=== PATIENT | male | born 1980 | race Caucasian/White ===

== ENCOUNTER → 2023-02-04 | Outpatient (CLI) | payer OTHER ==
[2023-02-04 09:54] LABS: Appearance,Urine Clear (Clear); Bilirubin,Urine Negative (Negative); Blood,Urine Negative (Negative); Color,Urine Yellow; Glucose,Urine (UA) Negative (Negative); Ketones,Urine Negative (Negative); Leukocyte Esterase,Urine Negative (Negative); Nitrite,Urine Negative (Negative); PH, Urine 5.5 (5.0-8.0); Protein,Urine Negative (Negative); Specific Gravity,Urine 1.024 (1.001-1.035); Urobilinogen,Urine <2.0 mg/dL (<2.0)
[2023-02-04 13:23] LABS: Basophils # (A) 0.02 X 10*3/uL (0.00-0.10); Basophils % (A) 0.4 %; Eosinophils # (A) 0.23 X 10*3/uL (0.04-0.35); HCT 44.8 % (39.6-50.0); HGB 14.7 d/dL (13.0-17.0); Lymphocytes # (A) 2.33 X 10*3/uL (0.90-5.00); Lymphocytes % (A) 40.9 %; MCH 28.7 pg (27.0-32.0); MCHC 32.8 d/dL (32.0-37.0); MCV 87.3 FL (80.0-97.0); Mean Platelet Volume 10.9 FL (9.5-12.2); Monocytes # (A) 0.42 X 10*3/uL (0.20-1.00); Monocytes % (A) 7.4 %; NRBC Per 100 WBC 0 X 10*3/uL (0.00-0.01); Neutrophils # (A) 2.69 X 10*3/uL (1.80-7.70); Neutrophils % (A) 47.1 %; Platelet Count 247 X 10*3/uL (140-440); RBC 5.13 X 10*6/uL (4.40-5.60); RDW 11.8 % (11.5-14.5)
[2023-02-04 13:34] LABS: Chol/HDL Ratio 2.21 Ratio; LDL Cholesterol,Calculated 70.3 mg/dL (0.0-131.0); VLDL Calculation 8.04 mg/dL (5.00-40.00)
[2023-02-04 14:21] LABS: ALT 17 U/L (10-49); AST 21 U/L (14-35); Albumin 4.6 d/dL (3.8-4.9); Alkaline Phosphatase 232 U/L (41-126); Blood Urea Nitrogen 17.8 mg/dL (9.0-27.0); Chloride 106 mmol/L (96-109); Globulin 2.3 d/dL (1.6-3.3); Glucose 86 mg/dL (70-110); Potassium 4.1 mmol/L (3.5-5.5); Sodium 141 mmol/L (135-145); Total Bilirubin 1.9 mg/dL (0.3-1.2); Total Protein 6.9 d/dL (6.2-8.2)
== END | disposition home or self-care (01) ==
LOC: LABWHC1 08:42
DX: Z00.00 Encounter for general adult medical examination without abnormal findings (principal)
CPT/HCPCS: 36415; 80053; 80061; 81003; 82306; 84443; 85025

== ENCOUNTER → 2024-01-27 | Outpatient (CLI) | payer OTHER | END | disposition home or self-care (01) | LOC: LABWHC1 08:39 | PROVIDERS: ATTEND Family Medicine | CPT/HCPCS: 36415; 80053; 80061; 82306; 84443; 85025; 86803; 87390 ==